=== PATIENT | male | born 1990 | race Caucasian/White ===

== ENCOUNTER 2020-09-26 13:04 | Emergency (ER) | payer OTHER, SELFPAY ==
--- NOTE | 2020-09-26 15:19 | XR_ITS ---
EXAMINATION: XR foot RT 2V, XR ankle RT min 3V CLINICAL INFORMATION: Pain status post injury. COMPARISON: Right ankle dated 09/26/19. TECHNIQUE: Right ankle 3 views. Right foot 3 views. FINDINGS: Right ankle: There is soft tissue swelling with a small joint effusion. No acute fracture or malalignment is demonstrated. Well-corticated bone fragments along the distal aspect of the lateral malleolus are unchanged. Right foot: No fracture or other acute abnormality. There is a small accessory navicular bone. XR/XR ankle RT min 3V IMPRESSION: 1. Soft tissue swelling right ankle with small joint effusion. No acute fracture or malalignment. 2. No acute abnormality of the right foot.
--- NOTE | 2020-09-26 15:19 | XR_ITS ---
EXAMINATION: XR foot RT 2V, XR ankle RT min 3V CLINICAL INFORMATION: Pain status post injury. COMPARISON: Right ankle dated 09/26/19. TECHNIQUE: Right ankle 3 views. Right foot 3 views. FINDINGS: Right ankle: There is soft tissue swelling with a small joint effusion. No acute fracture or malalignment is demonstrated. Well-corticated bone fragments along the distal aspect of the lateral malleolus are unchanged. Right foot: No fracture or other acute abnormality. There is a small accessory navicular bone. XR/XR foot RT 2V IMPRESSION: 1. Soft tissue swelling right ankle with small joint effusion. No acute fracture or malalignment. 2. No acute abnormality of the right foot.
[2020-09-26 16:32] VITALS: BP 152/85; PULSE 69; RESP 16; TEMP 36.7; O2SAT 97; BMI 28.7
--- NOTE | 2020-09-26 16:42 | ED_ITS ---
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 and complains of right ankle pain and swelling, this happened yesterday, no other injury Related Data Previous Rx's Medication Instructions Recorded ibuprofen 600 mg PO Q6H PRN #20 tab 09/26/20 Allergies Allergy/AdvReac Type Severity Reaction Status Date / Time No Known Allergies Allergy Verified 09/26/20 16:37 Review of Systems Review of Systems: Positive for right ankle pain and swelling Negatives are no head injury no headache no neck pain no back pain no numbness no weakness no paresthesias FOR[facility]LY [facility], [facility] Past Medical History Attestation statement: The following information was validated with the patient. FOR[facility]LY [facility], [facility]–1983 Narrative: Prior injury to right ankle Source: nursing notes reviewed Medical History (Updated 09/26/20 @ 16:54 by TOO Romero) No known health problems Social History Social History Advance Directives: No Advance Directives Information Provided: Yes Physical Exam Vital Signs: Vital Signs: Last Vital Signs Temp 98.1 F 09/26/20 16:32 Pulse 69 09/26/20 16:32 Resp 16 09/26/20 16:32 BP 152/85 H 09/26/20 16:32 Pulse Ox 97 09/26/20 16:32 Body Mass Index 28.7 General appearance comfortable no acute distress Normocephalic atraumatic Neck supple nontender Respiratory no distress Extremities are right ankle has swelling ecchymosis and tenderness in the lateral aspect including the malleolus and over the lateral proximal dorsum of the foot, skin is intact there are no wounds and the foot is neurovascular intact distal, the right knee is nontender no tenderness over the proximal fibula and full range of motion at the knee which has no tenderness or swelling Course Course Course Narrative: Patient is given Aircast and crutches and referred to work connection for follow-up as needed X-ray did not show any acute fracture or acute injury Discharge Plan Discharge Clinical Impression: Ankle sprain and strain Patient Disposition: Home, Self-Care Additional Instructions: Apply ice, elevate leg, activity as tolerated Follow with work connection for work related injury Return any concerns Prescriptions: New ibuprofen 600 mg tablet 600 mg PO Q6H PRN (Reason: pain) Qty: 20 RF: 0 Referrals: [facility] [Provider Group] - 2 days (Right ankle injury at work) Stand Alone Forms: Work/School Release
== END 2020-09-26 17:15 | disposition home or self-care (01) ==
PROVIDERS: Emergency Provider Emergency Medicine; PCP Internal Medicine
DX: S93.401A Sprain of unspecified ligament of right ankle, initial encounter (principal); M25.571 Pain in right ankle and joints of right foot; X50.1XXA Overexertion from prolonged static or awkward postures, initial encounter; Y93.9 Activity, unspecified; Y92.9 Unspecified place or not applicable; Y99.0 Civilian activity done for income or pay
CPT/HCPCS: 73610; 73620; 99283

== ENCOUNTER → 2020-09-30 11:37 | Outpatient (BNVA) | payer OTHER, SELFPAY | PROVIDERS: PCP Internal Medicine; Visit Provider Internal Medicine | DX: S93.401A Sprain of unspecified ligament of right ankle, initial encounter (principal); W17.2XXA Fall into hole, initial encounter | CPT/HCPCS: 99202 ==

== ENCOUNTER → 2020-10-02 12:31 | Outpatient (BNVA) | payer OTHER, SELFPAY | PROVIDERS: PCP Internal Medicine; Visit Provider Physician Assistant | DX: Z13.89 Encounter for screening for other disorder (principal) | CPT/HCPCS: 99202 ==

== ENCOUNTER → 2020-10-16 11:02 | Outpatient (BNVA) | payer OTHER, SELFPAY | PROVIDERS: Visit Provider Physician Assistant | DX: S93.401D Sprain of unspecified ligament of right ankle, subsequent encounter (principal) | CPT/HCPCS: 99212 ==

== ENCOUNTER → 2020-10-30 10:30 | Outpatient (BNVA) | payer OTHER, SELFPAY | PROVIDERS: PCP Internal Medicine; Visit Provider Physician Assistant | DX: Z13.89 Encounter for screening for other disorder (principal) | CPT/HCPCS: 99212 ==

== ENCOUNTER → 2020-11-18 14:29 | Outpatient (BNVA) | payer OTHER, SELFPAY | PROVIDERS: PCP Internal Medicine; Visit Provider Physician Assistant Medical | DX: S01.81XA Laceration without foreign body of other part of head, initial encounter (principal); W26.8XXA Contact with other sharp object(s), not elsewhere classified, initial encounter | CPT/HCPCS: 12001; 99202 ==

== ENCOUNTER → 2020-11-20 13:45 | Outpatient (BNVA) | payer OTHER, SELFPAY | PROVIDERS: PCP Internal Medicine; Visit Provider Physician Assistant Medical | DX: S01.111A Laceration without foreign body of right eyelid and periocular area, initial encounter (principal); X58.XXXA Exposure to other specified factors, initial encounter | CPT/HCPCS: 99213 ==

== ENCOUNTER → 2020-11-23 13:21 | Outpatient (BNVA) | payer OTHER, SELFPAY | PROVIDERS: PCP Internal Medicine; Visit Provider Physician Assistant | DX: S01.111A Laceration without foreign body of right eyelid and periocular area, initial encounter (principal); S09.90XA Unspecified injury of head, initial encounter; X58.XXXA Exposure to other specified factors, initial encounter; R51.9 Headache, unspecified | CPT/HCPCS: 99213 ==

== ENCOUNTER 2020-11-25 13:49 | Outpatient (RCR) | payer OTHER, SELFPAY ==
--- NOTE | 2020-11-25 15:03 | MHC.PT.EP ---
[facility] [place] Office [place] Office [place] Office [address] Jorge Alfonso [address] [phone] F: [phone] F: [phone] F: [phone] F: [phone] Physical Therapy Plan of Care Date of Evaluation: 11/25/20 Date of Surgery: Diagnosis: sprain of unspecified ligament of right ankle, S93.401A Assessment: 30 y/o male s/p R ankle sprain that occurred at work when he stepped out of his truck into a pothole on 09/26/20. Reports he heard a pop and felt a sharp pain that traveled up his lateral leg. He went to the ED the next day due to swelling and pain, imaging (-) for fx. He wore a walking boot for ~3 weeks and then has been using a tie-up ankle brace. He is back at work. 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 Examination shows decreased R ankle AROM, decreased R gastroc length, decreased R ankle strength, increased R ankle swelling, pain, and impaired functional squat mechanics. Recommend PT 2x/week for 4 weeks to address impairments, implement HEP, and optimize functional mobility. POC to include ankle/toe ROM, gastroc-soleus stretching, strengthening, balance training, squat training, return to run/sport, KT, and modaliteis as needed for swelling and pain. Frequency and Duration: The patient will be seen 2x/week for 4 weeks Short Term Goals: 2 weeks: 1. I with HEP 2. Improve Gastroc-soleus length to normal 3. Improve R ankle dorsiflexion to 15 degrees Private Detective Goals: 4 weeks: 1. Pt will be able to walk > 45 min with pain < 3/10 2. Pt will demonstrate functional squat to 90* knee flexion without noted compensation or cues 5/5x 3. Pt will initiate return to running Treatment Plan: Modalities to reduce pain, spasms and effusion. Manual therapy to restore motion and function. Therapeutic exercise to improve strength and flexibility. Neuromuscular re-education for posture and balance. Therapeutic activities to return to functional activities of daily living. Electronically signed by: Lexi Dolan PT Please sign and return to therapist. Thank you for your referral.
--- NOTE | 2020-12-17 16:01 | MHC.PT.DC ---
[facility] [place] Office [place] Office [place] Office [address] Jorge Alfonso [address] [phone] F: [phone] F: [phone] F: [phone] F: [phone] Physical Therapy Discharge Report Diagnosis: sprain of unspecified ligament of right ankle, S93.401A Date of Surgery: NA Date of Evaluation: 11/25/20 Date of Discharge: 12/17/20 Treatments to Date: 1 Cancellations to Date: 1 No Shows to Date: 5 Discharge Status: Visit Non-compliance Discharge Summary: Pt did not f/u with further visits following initial evaluation and has had 5 consecutive no shows. 3 Electronically signed by: Lexi Dolan PT Please sign and return to therapist. Thank you for your referral.
== END 2020-12-17 16:03 | disposition home or self-care (01) ==
LOC: HO.PT 13:49
PROVIDERS: PCP Internal Medicine; Visit Provider Physician Assistant
DX: S93.401A Sprain of unspecified ligament of right ankle, initial encounter (principal)
CPT/HCPCS: 97110; 97161

== ENCOUNTER 2021-03-30 09:00 | Outpatient (RCR) | payer OTHER, SELFPAY ==
--- NOTE | 2021-02-24 13:05 | MHC.PT.EP ---
[facility] [place] Office [place] Office [place] Office [address] [phone] F: [phone] F: [phone] F: [phone] F: [phone] Physical Therapy Plan of Care Date of Evaluation: Date of Surgery: Diagnosis: right ankle sprain Assessment: The patient arrived with right ankle pain, decreased ankle proprioception, and poor ankle stability. 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 He is an excellent candidate for PT to improve and restore ankle strength, proprioception, coordination to PLOF. Frequency and Duration: The patient will be seen 2x/week x 4 weeks. Short Term Goals: 1. Pt to be able to negotiate all community obstacles without pain. 2. Pt to be able to Single leg balance x 10 seconds to show improved ankle intrinsic strength Regional Operations Manager Goals: 1. Pt to be able to manage all household responsibilities such as carrying children, chores, without pain. 2. Pt to be able to do quick lateral movements without pain. 3. Pt to be able to run without pain. Treatment Plan: Modalities to reduce pain, spasms and effusion. Manual therapy to restore motion and function. Therapeutic exercise to improve strength and flexibility. Neuromuscular re-education for posture and balance. Therapeutic activities to return to functional activities of daily living. Electronically signed by: Elizabeth Disla PT DPT Please sign and return to therapist. Thank you for your referral.
--- NOTE | 2021-05-05 17:50 | MHC.PT.DC ---
[facility] [place] Office [place] Office [place] Office [address] Jorge Alfonso [address] [phone] F: [phone] F: [phone] F: [phone] F: [phone] Physical Therapy Discharge Report Diagnosis: right ankle sprain Date of Surgery: Date of Evaluation: 02/24/21 Date of Discharge: 05/05/21 Treatments to Date: 6 Cancellations to Date: 3 No Shows to Date: 7 Discharge Status: Improved Function Independent with HEP Visit Non-compliance Discharge Summary: Pt did not f/u with further visits. Treatment assessment at time of last attended visit: Reyes is progressing well with PT as evidenced by increasing stability in single limb stance. However, he has poor ankle control and balance when his ankle is in open packed position ( plantarflexed) This has caused a risk of falling while doing down stairs. His ankle AROM has improved, but is still not WNL. His lateral stability is only 4+/5 when his ankle is Plantarflexed. I would like him to continue 2x/week x 3 more weeks to continue to strengthen all functional movements. Electronically signed by: Lexi Dolan PT Please sign and return to therapist. Thank you for your referral.
== END 2021-05-05 17:50 | disposition home or self-care (01) ==
LOC: HO.PT 09:00
PROVIDERS: PCP Internal Medicine; Visit Provider Physician Assistant
DX: S93.401A Sprain of unspecified ligament of right ankle, initial encounter (principal)
CPT/HCPCS: 97110; 97112; 97140; 97162; 97530

== ENCOUNTER → 2023-10-13 09:45 | Outpatient (BNVA) | payer SELFPAY | PROVIDERS: PCP Internal Medicine; Visit Provider Internal Medicine | DX: Z02.79 Encounter for issue of other medical certificate (principal) ==